=== PATIENT | female | born 1980 | race African-American/Black ===

== ENCOUNTER 2016-05-29 | Emergency (ER) | payer OTHER ==
--- NOTE | 2016-05-29 17:15 | ER Document Report ---
ED Medical Screen (RME) - General Stated Complaint: POSSIBLE RASH Time seen by provider: 17:13 Mode of Arrival: Ambulatory Information source: Patient Notes: 35-year-old female presents to ED for blistering rash on the chest stomach and arms 3 days. Bilateral. Partial hysterectomy in 2013 I have greeted and performed a rapid initial assessment of this patient. A comprehensive ED assessment and evaluation of the patient, analysis of test results and completion of medical decision making process will be conducted by an additional ED providers. TRAVEL OUTSIDE OF THE [place] IN LAST 30 DAYS: No - Related Data Allergies/Adverse Reactions: No Known Allergies Allergy (Verified 05/29/16 17:12) Past Medical History Past Surgical History: Reports: Hx Hysterectomy - Immunizations Hx Diphtheria, Pertussis, Tetanus Vaccination: Yes - not UTD Physical Exam - Vital signs Vitals: Temp Pulse Resp BP Pulse Ox 98.9 F 78 16 139/81 H 99 05/29/16 16:55 05/29/16 16:55 05/29/16 16:55 05/29/16 16:55 05/29/16 16:55 Course - Vital Signs Vital signs: Temp Pulse Resp BP Pulse Ox 98.9 F 78 16 139/81 H 99 05/29/16 16:55 05/29/16 16:55 05/29/16 16:55 05/29/16 16:55 05/29/16 16:55
--- NOTE | 2016-05-29 18:29 | ER Document Report ---
ED General - General Chief Complaint: Rash Stated Complaint: POSSIBLE RASH Mode of Arrival: Ambulatory Information source: Patient Notes: Patient is a 35 year old female who presents with 3 day history of rash to her breasts bilaterally that is spreading to her arms. She denies any fever, chills , difficulty breathing, difficulty swallowing, n/v/d. She denies exposure to any new soaps, lotions, detergents, pets or medications. She has hx of psoriasis and tried her psoriasis cream but states this did not help. She has tried benadryl for the itching but states she is getting minimal relief. TRAVEL OUTSIDE OF THE [place] IN LAST 30 DAYS: No - Related Data Allergies/Adverse Reactions: No Known Allergies Allergy (Verified 05/29/16 17:12) Past Medical History - General Information source: Patient - Social History Smoking Status: Current Every Day Smoker Chew tobacco use (# tins/day): No Frequency of alcohol use: None Drug Abuse: None Family History: Reviewed & Not Pertinent Patient has suicidal ideation: No Patient has homicidal ideation: No Renal/ Medical History: Denies: Hx Peritoneal Dialysis Past Surgical History: Reports: Hx Hysterectomy - Immunizations Hx Diphtheria, Pertussis, Tetanus Vaccination: Yes - not UTD Review of Systems - Review of Systems Constitutional: See HPI EENT: No symptoms reported Cardiovascular: No symptoms reported Respiratory: No symptoms reported Gastrointestinal: No symptoms reported Genitourinary: No symptoms reported Female Genitourinary: No symptoms reported Musculoskeletal: No symptoms reported Skin: See HPI Hematologic/Lymphatic: No symptoms reported Neurological/Psychological: No symptoms reported Physical Exam - Vital signs Vitals: Temp Pulse Resp BP Pulse Ox 98.9 F 78 16 139/81 H 99 05/29/16 16:55 05/29/16 16:55 05/29/16 16:55 05/29/16 16:55 05/29/16 16:55 Interpretation: Hypertensive - Notes Notes: PHYSICAL EXAM: CONSTITUTIONAL: Alert and oriented, well-appearing and in no acute distress. Speaking in full sentences without difficulty. HENT: Normocephalic, atraumatic. Oropharynx clear without erythema, tonsilar exudate or malocclusion. Trachea midline. Uvula midline. Moist mucous membranes. HEART: Regular rate and rhythm without murmurs. LUNGS: CTAB and equal. No wheezes, rales or rhonchi. GI: Normactive bowel sounds. Nontender, non-distended. No organomegaly. no CVAT. EXTREMITIES: Normal range of motion, no pitting edema. No cyanosis. Cap Refill < 3 seconds. PSYCH: Normal mood, normal affect. SKIN: Warm and dry. Normal turgor. No lesions noted. Erythematous plaque-like lesions to beneath both breasts with excoriations, miniscule vesicular lesions noted to left arm which patient states is how the rash starts. Course - Re-evaluation Re-evalutation: 05/29/16 18:28 Patient seen and examined. No respiratory distress, difficulty swallowing. patient is speaking in full sentences without difficulty. Rash consistent with contact dermatitis - does not appear to be urticaria, shingles, scabies, SLE, SJS or cellulitis. Will discharge home in stable condition, script provided for anti-itching, steroids, and anti-fungal cream. Follow-up with PMD. - Vital Signs Vital signs: Temp Pulse Resp BP Pulse Ox 98.9 F 78 16 139/81 H 99 05/29/16 16:55 05/29/16 16:55 05/29/16 16:55 05/29/16 16:55 05/29/16 16:55 Discharge - Discharge Clinical Impression: Candidiasis of breast Contact dermatitis Qualifiers: Contact dermatitis type: unspecified Contact dermatitis trigger: unspecified trigger Qualified Code(s): L25.9 - Unspecified contact dermatitis, unspecified cause Condition: Stable Disposition: HOME, SELF-CARE Additional Instructions: Allergic Contact Dermatitis You have a local allergic reaction, called contact dermatitis. This an allergy to something in contact with your skin. Poison david, jewelry, soaps, perfumes, and chemicals are common causes. Typically, an itchy rash develops a few days after the exposure. If the reaction is severe, blisters may develop. Two to three weeks may be required for healing. Generally, treatment consists of: (1) a thorough washing with soap to remove the offending substance, (2) application of a cortisone cream, and (3) antihistamines for itching. If the reaction is particularly severe, further measures may be required. These can include soaking in epsom salts or Saranya's solution, and oral cortisone medications. Call the doctor if the rash worsens despite treatment, or if signs of infection occur such as spreading redness, red streaks, swollen glands, swelling , or fever. STEROID MEDICATION: You have been given a medicine of the cortisone/steroid class. This medication is used to control inflammation or allergy. It is usually only given for a short period of time, until the acute process subsides. There are usually no side effects from short-term use of cortisone-like medications. Some persons feel an increased sense of well-being and are not sleepy at bedtime. Long-term use of cortisone medications is best avoided, unless required for a severe condition. If your condition does not remit, or relapses after the course of corticosteroid medication, you should consult your physician. Corticosteroid Medication You have been given a medicine of the cortisone class. This medication is used to control inflammation or allergy. It is usually only given for a short period of time, until the acute process subsides. There are usually no side effects from short-term use of cortisone-like medications. Some persons feel an increased sense of well-being and are not sleepy at bedtime. Long-term use of cortisone medications is best avoided, unless required for a severe condition. If your condition does not remit, or relapses after the course of corticosteroid medication, you should consult your physician. Contact the physician if you develop lightheadedness, black or tarry stools , swelling of the legs, or significant rapid change in weight. Return immediately for any new or worsening symptoms. Follow-up with primary care provider, call tomorrow to make followup appointment. Prescriptions: Clotrimazole [Antifungal] 1 applic TP DAILY #1 cream..g. Hydroxyzine HCl [Atarax 10 mg Tablet] 10 mg PO Q8H PRN #7 tablet PRN Reason: Prednisone [Deltasone 20 mg Tablet] 3 tab PO DAILY 5 Days Forms: Elevated Blood Pressure, Return to Work
== END 2016-05-29 18:52 | disposition home or self-care (01) ==
CPT/HCPCS: 99282

== ENCOUNTER 2016-06-26 00:19 | Emergency (ER) | payer SELFPAY ==
[2016-06-26] MEDS ORDERED: BENZONATATE 100 MG CAPSULE PO ONE (02:09)
[2016-06-26] MEDS ORDERED: IBUPROFEN 600 MG TABLET PO ONE (02:09)
--- NOTE | 2016-06-26 02:54 | ER Document Report ---
ED General - General Chief Complaint: Flu Symptoms Stated Complaint: FLU LIKE SYMPTOMS Notes: Patient is a 35 year old female who presents with 1 week of a persistent cough. States initially she had split phlegm production with this cough but that has since resolved. Now notes a constant, dry cough that often prevents her from sleeping. States this feels similar to what she's had bronchitis in the past. Symptoms have been relatively unchanged since onset. Nothing improves or worsens her symptoms. She has not seen her primary doctor regarding today's concerns. Denies any vomiting, diarrhea, recorded fevers, lethargy or altered mental status. TRAVEL OUTSIDE OF THE [place] IN LAST 30 DAYS: No - Related Data Allergies/Adverse Reactions: No Known Allergies Allergy (Verified 05/29/16 17:12) Past Medical History - General Information source: Patient - Social History Smoking Status: Current Every Day Smoker Frequency of alcohol use: None Drug Abuse: None Lives with: Family Family History: Reviewed & Not Pertinent Patient has suicidal ideation: No Patient has homicidal ideation: No Renal/ Medical History: Denies: Hx Peritoneal Dialysis Past Surgical History: Reports: Hx Hysterectomy - Immunizations Hx Diphtheria, Pertussis, Tetanus Vaccination: Yes - not UTD Review of Systems - Review of Systems Notes: Constitutional: Negative for fever. HENT: Negative for sore throat. Eyes: Negative for visual changes. Cardiovascular: Negative for chest pain. Respiratory: Negative for shortness of breath. Positive for persistent coughing Gastrointestinal: Negative for abdominal pain, vomiting or diarrhea. Genitourinary: Negative for dysuria. Musculoskeletal: Negative for back pain. Skin: Negative for rash. Neurological: Negative for headaches, weakness or numbness. 10 point ROS negative except as marked above and in HPI. Physical Exam - Vital signs Vitals: Temp Pulse Resp BP Pulse Ox 98.4 F 87 20 110/81 100 06/26/16 00:55 06/26/16 00:55 06/26/16 00:55 06/26/16 00:55 06/26/16 00:55 Interpretation: Normal Notes: PHYSICAL EXAMINATION: GENERAL: Well-appearing, well-nourished and in no acute distress. HEAD: Atraumatic, normocephalic. EYES: Pupils equal round and reactive to light, extraocular movements intact, sclera anicteric, conjunctiva are normal. ENT: nares patent, oropharynx clear without exudates. Moist mucous membranes. NECK: Normal range of motion, supple without lymphadenopathy LUNGS: Breath sounds clear to auscultation bilaterally and equal. No wheezes rales or rhonchi. HEART: Regular rate and rhythm without murmurs ABDOMEN: Soft, nontender, normoactive bowel sounds. No guarding, no rebound. No masses appreciated. EXTREMITIES: Normal range of motion, no pitting or edema. No cyanosis. NEUROLOGICAL: No focal neurological deficits. Moves all extremities spontaneously and on command. PSYCH: Normal mood, normal affect. SKIN: Warm, Dry, normal turgor, no rashes or lesions noted. Course - Re-evaluation Re-evalutation: 06/26/16 02:51 Presentation is most consistent with a viral upper respiratory infection. Patient is overall well appearance, vitals within normal limits, well-hydrated. Patient denies any headache, neck pain, and has no evidence of meningismus on examination. Lungs are clear bilaterally. No evidence of respiratory distress. Based on clinical exam and history, I do not suspect an acute pneumonia, meningitis, strep pharyngitis, or an acute encephalitis. Chest x- ray clear without evidence of pneumonia. At this time will discharge with return precautions and follow-up recommendations. Verbal discharge instructions given a the bedside and opportunity for questions given. Medication warnings reviewed. Patient is in agreement with this plan and has verbalized understanding of return precautions and the need for primary care follow-up in the next 24-72 hours. - Vital Signs Vital signs: Temp Pulse Resp BP Pulse Ox 98.4 F 87 20 110/81 100 06/26/16 00:55 06/26/16 00:55 06/26/16 00:55 06/26/16 00:55 06/26/16 00:55 Discharge - Discharge Clinical Impression: Bronchitis Condition: Good Disposition: HOME, SELF-CARE Additional Instructions: You were seen for symptoms most consistent with bronchitis. This can take up to 12 weeks to fully resolve. This is generally due to a viral infection. Please follow-up with your primary doctor in the next 2-3 days. Return if you develop worsening cough, vomiting, fever >100.4, pass out, begin coughing blood, or have any other symptoms that are concerning to you. Please use the medications prescribed today as directed. Prescriptions: Benzonatate [Tessalon Perle 100 mg Capsule] 100 mg PO Q8HP PRN #40 cap PRN Reason:
[2016-06-26 03:14] VITALS: BP 108/69
== END 2016-06-26 03:14 | disposition home or self-care (01) ==
LOC: ER 00:19
DX: J40 Bronchitis, not specified as acute or chronic (principal); R05 Cough; F17.200 Nicotine dependence, unspecified, uncomplicated
CPT/HCPCS: 71020; 99283

== ENCOUNTER 2016-11-25 20:49 | Emergency (ER) | payer SELFPAY ==
[2016-11-25 21:12] VITALS: BP 145/87
--- NOTE | 2016-11-25 22:29 | ER Document Report ---
ED General - General Chief Complaint: Sore Throat Stated Complaint: SORE THROAT Time Seen by Provider: 11/25/16 22:01 Notes: Patient is a pleasant 35-year-old female presents with complaint of pain in her throat and also some pressure type sensation to her ears. Some congestion. No fevers. No cough. No vomiting. No diarrhea. No other complaints at this time. TRAVEL OUTSIDE OF THE [place] IN LAST 30 DAYS: No - Related Data Allergies/Adverse Reactions: No Known Allergies Allergy (Verified 11/25/16 21:09) Past Medical History - Social History Smoking Status: Unknown if Ever Smoked Chew tobacco use (# tins/day): No Frequency of alcohol use: None Drug Abuse: None Family History: Reviewed & Not Pertinent Patient has suicidal ideation: No Patient has homicidal ideation: No Renal/ Medical History: Denies: Hx Peritoneal Dialysis Past Surgical History: Reports: Hx Hysterectomy - Immunizations Hx Diphtheria, Pertussis, Tetanus Vaccination: Yes - not UTD Review of Systems - Review of Systems Notes: My Normal Review Basic REVIEW OF SYSTEMS: CONSTITUTIONAL : Denies fever, chills, or sweats. Denies recent illness. EENT: Sore throat RESPIRATORY: Denies cough, cold, or chest congestion. Denies shortness of breath, difficulty breathing, or wheezing. GASTROINTESTINAL: Denies abdominal pain. Denies nausea, vomiting, or diarrhea. Denies constipation. Last BM: MUSCULOSKELETAL: Denies neck or back pain or joint pain or swelling. SKIN: Denies rash or skin lesions.. NEUROLOGICAL: Denies altered mental status or loss of consciousness. Denies headache. Denies weakness or paralysis or loss of use of either side. Denies problems with gait or speech. Denies sensory or motor loss. ALL OTHER SYSTEMS REVIEWED AND NEGATIVE. Physical Exam - Vital signs Vitals: Temp Pulse Resp BP Pulse Ox 98.6 F 87 18 145/87 H 99 11/25/16 21:10 11/25/16 21:10 11/25/16 21:10 11/25/16 21:10 11/25/16 21:10 - Notes Notes: General Appearance: Well nourished, alert, cooperative, no acute distress, no obvious discomfort. Well appearing. Vitals: reviewed, See vital signs table. Head: no swelling or tenderness to the head Eyes: PERRL, EOMI, Conjuctiva clear Mouth: No decreasd moisture Throat: No significant tonsillar inflammation. Patient does have some sores in the posterior pharynx consistent with herpetic stomatitis. Neck: Supple, no neck tenderness, no lymphadenopathy. Lungs: No wheezing, No rales, No rhonci, No accessory muscle use, good air exchange bilaterally. Heart: Normal rate, Regular rythm, No murmur, no rub Extremities: strength 5/5 in all extremities, good pulses in all extremities, no swelling or tenderness in the extremities, no edema. Skin: warm, dry, appropriate color, no rash Neuro: speech clear, oriented x 3, normal affect, responds appropriately to questions. Course - Re-evaluation Re-evalutation: 11/26/16 03:20 Patient has stomatitis most likely is viral in etiology. I do not see any exudates. Patient had a strep swab test was performed in triage and was negative. No difficulty breathing or swallowing. She looks well. I will place her Magic mouthwash. She does work in a daycare. I encouraged her to stay away from daycare until her symptoms are resolved. I informed her that she cannot be around any infants. Patient shows understanding of this and will be discharged home. She is encouraged to return to ER if she has high fevers, difficulty breathing, or difficulty swallowing. Dictation of this chart was performed using voice recognition software; therefore, there may be some unintended grammatical errors. - Vital Signs Vital signs: Temp Pulse Resp BP Pulse Ox 98.6 F 87 18 145/87 H 99 11/25/16 21:10 11/25/16 21:10 11/25/16 21:10 11/25/16 21:10 11/25/16 21:10 Discharge - Discharge Clinical Impression: Stomatitis Condition: Good Disposition: HOME, SELF-CARE Additional Instructions: Please stay away from the children at work until your symptoms have resolved. Please return to the ER immediately if you have difficulty breahting, recurrent fevers not responding to Tylenol, or if you feel that you are worsening. Prescriptions: Nystatin/Dexameth/Diphen [Magic Mouthwash (Omh Formula) Susp] 5 ml PO QID #120 ml Forms: Return to Work
== END 2016-11-25 22:42 | disposition home or self-care (01) ==
LOC: ER 20:49
DX: K12.1 Other forms of stomatitis (principal); J02.9 Acute pharyngitis, unspecified; Z90.710 Acquired absence of both cervix and uterus
CPT/HCPCS: 87070; 87880; 99283

== ENCOUNTER 2017-11-01 01:43 | Emergency (ER) | payer SELFPAY ==
--- NOTE | 2017-11-01 04:36 | ER Document Report ---
ED General - General Chief Complaint: Rash Stated Complaint: SKIN CONDITION Time Seen by Provider: 11/01/17 04:08 Notes: Patient is a 36-year-old female presents with complaint of a rash. I splinted for a few days. Should start out with few red bumps and she had a patch over left upper chest. She denies any pain associate the rash. No fevers. No contact with anybody with similar rash. No other complaints at this time. No rash or lesions on palms or soles. No rash or lesions in the mouth. TRAVEL OUTSIDE OF THE [place] IN LAST 30 DAYS: No - Related Data Allergies/Adverse Reactions: No Known Allergies Allergy (Verified 11/01/17 04:51) Past Medical History - Social History Smoking Status: Unknown if Ever Smoked Frequency of alcohol use: None Drug Abuse: None Family History: Reviewed & Not Pertinent Renal/ Medical History: Denies: Hx Peritoneal Dialysis Past Surgical History: Reports: Hx Hysterectomy - Immunizations Hx Diphtheria, Pertussis, Tetanus Vaccination: Yes - not UTD Review of Systems - Review of Systems Notes: My Normal Review Basic REVIEW OF SYSTEMS: CONSTITUTIONAL : Denies fever, chills, or sweats. Denies recent illness. EENT: Denies eye, ear, throat, or mouth pain or symptoms. Denies nasal or sinus congestion. RESPIRATORY: Denies cough, cold, or chest congestion. Denies shortness of breath, difficulty breathing, or wheezing. GASTROINTESTINAL: Denies abdominal pain. Denies nausea, vomiting, or diarrhea. Denies constipation. Last BM: SKIN: Rash on trunk. NEUROLOGICAL: Denies altered mental status or loss of consciousness. Denies headache. Denies weakness or paralysis or loss of use of either side. Denies problems with gait or speech. Denies sensory or motor loss. ALL OTHER SYSTEMS REVIEWED AND NEGATIVE. Physical Exam - Vital signs Vitals: Temp Pulse Resp BP Pulse Ox 99.2 F 87 16 144/95 H 99 11/01/17 01:56 11/01/17 01:56 11/01/17 01:56 11/01/17 01:56 11/01/17 01:56 - Notes Notes: General Appearance: Well nourished, alert, cooperative, no acute distress, no obvious discomfort. Vitals: reviewed, See vital signs table. Head: no swelling or tenderness to the head Eyes: PERRL, EOMI, Conjuctiva clear Mouth: No decreasd moisture Throat: No tonsillar inflammation, No airway obstruction, No lymphadenopathy Extremities, good pulses in all extremities, no swelling or tenderness in the extremities, no edema. Skin: Patient has a herald patch left upper chest with multiple papular lesions. This is consistent with psoriasis rosacea. No palmar lesions. No lesions on the sole of the feet. No oral lesions. Neuro: speech clear, oriented x 3, normal affect, responds appropriately to questions. Course - Re-evaluation Re-evalutation: 11/01/17 07:06 Patient has rash consistent with pityriasis rosacea. I talked to patient length about this. I informed her return to ER if she has high fevers, pain, or she feels unwell. Patient agrees with plan will be discharged home. Dictation of this chart was performed using voice recognition software; therefore, there may be some unintended grammatical errors. - Vital Signs Vital signs: Temp Pulse Resp BP Pulse Ox 98 F 67 18 132/87 H 100 11/01/17 04:55 11/01/17 04:55 11/01/17 04:55 11/01/17 04:55 11/01/17 04:55 Discharge - Discharge Clinical Impression: Pityriasis rosea Condition: Good Disposition: HOME, SELF-CARE Additional Instructions: Please take Tylenol for any fevers. Take Benadryl for itching. Return to the ER if you develop any lesions in your mouth, on you palms, or on the soles of your feet. You have what appears to be pityriasis. This is a rash caused by a virus. It is usually self limiting. Rash usually will stay for about 2 weeks, but occasionally will last longer. Please follow up with a physician for reevaluation if your rash lasts longer than 3 weeks.
[2017-11-01 04:56] VITALS: BP 132/87
== END 2017-11-01 04:56 | disposition home or self-care (01) ==
LOC: ER 01:43
DX: L42 Pityriasis rosea (principal); Z90.710 Acquired absence of both cervix and uterus
CPT/HCPCS: 99282

== ENCOUNTER 2019-04-09 11:23 | Emergency (ER) | payer SELFPAY ==
[2019-04-09 12:23] LABS: A TYPE INFLUENZA AG NEGATIVE (NEGATIVE); B INFLUENZA AG NEGATIVE (NEGATIVE)
--- NOTE | 2019-04-09 12:30 | RADIOLOGY REPORT (SQ) ---
EXAM DESCRIPTION: CHEST 2 VIEWS COMPLETED DATE/TIME: 04/09/2019 11:12 am REASON FOR STUDY: cough/fever COMPARISON: 06/26/2016 EXAM PARAMETERS: NUMBER OF VIEWS: two views TECHNIQUE: Digital Frontal and Lateral radiographic views of the chest acquired. RADIATION DOSE: NA LIMITATIONS: none FINDINGS: LUNGS AND PLEURA: No opacities, masses or pneumothorax. No pleural effusion. MEDIASTINUM AND HILAR STRUCTURES: No masses or contour abnormalities. HEART AND VASCULAR STRUCTURES: Heart normal size. No evidence for failure. BONES: No acute findings. HARDWARE: None in the chest. OTHER: No other significant finding. IMPRESSION: NO ACUTE RADIOGRAPHIC FINDING IN THE CHEST. TECHNICAL DOCUMENTATION: JOB ID: [id number] [employer]- All Rights Reserved Reading location - IP/workstation name: [email or web address]
--- NOTE | 2019-04-09 13:38 | ER Document Report ---
HPI - HPI Time Seen by Provider: 04/09/19 11:40 Pain Level: 3 Notes: Otherwise healthy 38-year-old female presents emergency department chief complaint of cough, congestion and mild rash. Patient reports her chest hurts when she coughs. 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 She denies any nausea, vomiting, diarrhea or fever. - REPRODUCTIVE Reproductive: DENIES: : Past Medical History - General Information source: Patient - Social History Smoking Status: Never Smoker Chew tobacco use (# tins/day): No Frequency of alcohol use: None Drug Abuse: None Family History: Reviewed & Not Pertinent Patient has suicidal ideation: No Patient has homicidal ideation: No - Medical History Medical History: Negative Renal/ Medical History: Denies: Hx Peritoneal Dialysis Past Surgical History: Reports: Hx Hysterectomy - Immunizations Hx Diphtheria, Pertussis, Tetanus Vaccination: Yes - not UTD Vertical Provider Document - CONSTITUTIONAL Notes: PHYSICAL EXAMINATION: GENERAL: Well-appearing, well-nourished and in no acute distress. HEAD: Atraumatic, normocephalic. EYES: Pupils equal round and reactive to light, extraocular movements intact, conjunctiva are normal. ENT: Nares patent, oropharynx clear without exudates. Moist mucous membranes. NECK: Normal range of motion, supple without lymphadenopathy LUNGS: Breath sounds clear to auscultation bilaterally and equal. No wheezes rales or rhonchi. HEART: Regular rate and rhythm without murmurs ABDOMEN: Soft, nontender, nondistended abdomen. No guarding, no rebound. No masses appreciated. Female : deferred Musculoskeletal: Normal range of motion, no pitting or edema. No cyanosis. NEUROLOGICAL: Cranial nerves grossly intact. Normal speech, normal gait. Normal sensory, motor exams PSYCH: Normal mood, normal affect. SKIN: Warm, Dry, normal turgor, no rashes or lesions noted. - INFECTION CONTROL TRAVEL OUTSIDE OF THE [place] IN LAST 30 DAYS: No Course - Re-evaluation Re-evalutation: Laboratory 04/09/19 11:53 Influenza A (Rapid) NEGATIVE Influenza B (Rapid) NEGATIVE Chest X-Ray 04/09/19 11:42 IMPRESSION: NO ACUTE RADIOGRAPHIC FINDING IN THE CHEST. Work-up today was unremarkable, patient alert, oriented, physical examination unremarkable. Patient appears well, nontoxic. Likely viral illness. Patient will be discharged home in stable condition at this time. ED return precautions discussed, patient verbalized understanding and agreement with same. - Vital Signs Vital signs: Temp Pulse Resp BP Pulse Ox 99.3 F 97 20 140/89 H 100 04/09/19 11:33 04/09/19 11:33 04/09/19 11:33 04/09/19 11:33 04/09/19 11:33 Discharge - Discharge Clinical Impression: Viral upper respiratory illness, Pityriasis rosacea Condition: Stable Disposition: HOME, SELF-CARE Additional Instructions: Please take medications as prescribed. You may also take 25 to 50 mg of Benadryl every 4-6 hours. Please follow-up with your primary care provider. Drink plenty of fluids. Wash your hands frequently. Prescriptions: Codeine Phosphate/Guaifenesin [Cheratussin AC Syrup] 10 ml PO QHS #120 ml Benzonatate [Tessalon Perles 100 mg Capsule] 1 - 2 tab PO Q8HP PRN #30 capsule PRN Reason: Prednisone [Deltasone 20 mg Tablet] 3 tab PO DAILY 5 Days #15 tablet
[2019-04-09 15:12] VITALS: BP 110/78
== END 2019-04-09 15:12 | disposition home or self-care (01) ==
LOC: ER 11:23
DX: J06.9 Acute upper respiratory infection, unspecified (principal); L42 Pityriasis rosea; R68.89 Other general symptoms and signs; Z90.710 Acquired absence of both cervix and uterus
CPT/HCPCS: 71046; 87804; 99283